=== PATIENT | female | born 1955 | race Caucasian/White ===

== ENCOUNTER → 2020-05-20 09:31 | Outpatient (CLI) | payer MEDICARE, OTHER, SELFPAY ==
--- NOTE | ~2020-05-20 | XR_ITS ---
EXAMINATION: XR chest 2V DATE: 05/20/2020 10:03 INDICATION: Chest pain. TECHNIQUE: Frontal and lateral views of the chest were obtained. COMPARISON: Chest single view 09/22/2014 FINDINGS: The chest demonstrates clear lungs without pneumonia, pleural effusion, or pneumothorax. Th e heart size is normal. There is a compression fracture in mid thoracic spine, likely chronic. IMPRESSION: 1. No acute cardiopulmonary disease. Reviewed, dictated and finalized at location A. TENANCE CLERK
--- NOTE | ~2020-05-20 | MM_ITS ---
EXAMINATION: MM screening eduar BI w letitia HISTORY: Screening TECHNIQUE: Craniocaudal and mediolateral oblique 3-D tomosynthesis images were obtained and synthetic 2-D images were generated. CAD analysis was submitted and interpreted. COMPARISON: Comparison to multiple prior studies sequentially, with oldest reviewed study dated 12/2014. BREAST PARENCHYMAL COMPOSITION: There are scattered areas of fibroglandular density. FINDINGS: There is no evidence of suspicious mass, calcification, or architectural distortion to sugg est malignancy in either breast. There has been no suspicious interval change. IMPRESSION: 1. No mammographic evidence of malignancy. 2. Recommend routine screening mammography in one year. BI-RADS Category 1: Negative Reviewed, dictated and finalized at location A. MA CENTER NURSE
== END ==
PROVIDERS: PCP Nurse Practitioner Adult Health; Visit Provider Nurse Practitioner Adult Health
DX: Z12.31 Encounter for screening mammogram for malignant neoplasm of breast (principal); Z87.898 Personal history of other specified conditions
CPT/HCPCS: 71046; 77063; 77067

== ENCOUNTER 2020-05-25 10:13 | Outpatient (CLI) | payer MEDICARE, OTHER, SELFPAY ==
--- NOTE | 2020-05-25 | EST_ITS ---
Patient Info Name: Joyce Del Rio Age: 64 years : 1955 Gender: Female Ht: 63 in Wt: 134 lbs BSA: 1.65 m2 Heart Rhythm: Sinus Rhythm Exam Date: 05/25/2020 12:16 PM Exam Location: [facility] Stress Patient Status: Outpatient Admit Date: 05/25/2020 Staff Ordering Physician: Benigno, Lynne TUBBS Attending Provider: Benigno, Lynne TUBBS Exercise Technologist: Salazar Baeza RDCS, RT Exercise Physician: Yosvany Vazquez MD Exam Type: CA stress test treadmill Study Info An exercise stress test was performed. Summary 1. Nondiagnostic ST/T wave changes with exercise which did not meet strict criteria for reversible myocardial ischemia. 2. No arrhythmias were observed during the examination. 3. Maximal treadmill stress EKG study achieving 94% of age predicted maximum heart rate and 7.4 METS at peak exercise. 4. Fair exercise capacity for age achieving 6 minutes and 13 seconds on Deuce protocol. 5. Normal heart rate and blood pressure response to exercise. 6. No stress-induced chest pain. Protocol: Deuce Stress ECG Details Stage: REST Duration (min): 0 min : 44 sec Speed (mph): 0.0 Grade (%): 0 HR (bpm): 66 SBP (mmHg): 148 DBP (mmHg): 81 METS: --- Stage: REST Duration (min): 1 min : 2 sec Speed (mph): 0.0 Grade (%): 0 HR (bpm): 71 SBP (mmHg): 148 DBP (mmHg): 81 METS: --- Stage: STAGE 1 Duration (min): 1 min : 0 sec Speed (mph): 1.7 Grade (%): 10 HR (bpm): 102 SBP (mmHg): 148 DBP (mmHg): 81 METS: --- Stage: STAGE 1 Duration (min): 2 min : 0 sec Speed (mph): 1.7 Grade (%): 10 HR (bpm): 114 SBP (mmHg): 148 DBP (mmHg): 81 METS: --- Stage: STAGE 1 Duration (min): 3 min : 0 sec Speed (mph): 1.7 Grade (%): 10 HR (bpm): 122 SBP (mmHg): 181 DBP (mmHg): 77 METS: --- Stage: STAGE 2 Duration (min): 1 min : 0 sec Speed (mph): 2.5 Grade (%): 12 HR (bpm): 132 SBP (mmHg): 181 DBP (mmHg): 77 METS: --- Stage: STAGE 2 Duration (min): 2 min : 0 sec Speed (mph): 2.5 Grade (%): 12 HR (bpm): 139 SBP (mmHg): 187 DBP (mmHg): 75 METS: --- Stage: STAGE 2 Duration (min): 3 min : 0 sec Speed (mph): 2.5 Grade (%): 12 HR (bpm): 136 SBP (mmHg): 187 DBP (mmHg): 75 METS: --- Stage: STAGE 3 Duration (min): 0 min : 13 sec Speed (mph): 3.4 Grade (%): 14 HR (bpm): 138 SBP (mmHg): 187 DBP (mmHg): 75 METS: --- Stage: RECOVERY Duration (min): 0 min : 46 sec Speed (mph): 0.0 Grade (%): 0 HR (bpm): 128 SBP (mmHg): 197 DBP (mmHg): 70 METS: --- Stage: RECOVERY Duration (min): 1 min : 46 sec Speed (mph): 0.0 Grade (%): 0 HR (bpm): 109 SBP (mmHg): 197 DBP (mmHg): 70 METS: --- Stage: RECOVERY Duration (min): 2 min : 47 sec Speed (mph): 0.0 Grade (%): 0 HR (bpm): 98 SBP (mmHg): 187 DBP (m
== END 2020-05-25 10:14 | disposition home or self-care (01) ==
PROVIDERS: PCP Nurse Practitioner Adult Health; Visit Provider Nurse Practitioner Adult Health
DX: Z87.898 Personal history of other specified conditions (principal)
CPT/HCPCS: 93017